=== PATIENT | male | born 2000 | race African-American/Black ===

== ENCOUNTER 2025-02-21 11:56 | Outpatient (NON) | payer OTHER, SELFPAY ==
--- OUTSIDE RECORDS SUMMARY | 2025-02-21 11:58 | XMS_ITS | Clinical Summary ---
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 Gender Identity Not on file Sexual Orientation Not on file Last Filed Vital Signs Vital Sign Reading Time Taken Comments Blood Pressure 122/79 12/10/2022 10:41 AM CDT Pulse 71 12/10/2022 10:41 AM CDT Temperature 36.8 C (98.2 F) 12/10/2022 10:41 AM CDT Respiratory Rate 20 12/10/2022 10:41 AM CDT Oxygen Saturation 96% 12/10/2022 10:41 AM CDT Inhaled Oxygen Concentration - - Weight 127 kg (280 lb) 12/10/2022 10:41 AM CDT Height 182.9 cm (6') 12/10/2022 10:41 AM CDT Body Mass Index 37.97 12/10/2022 10:41 AM CDT Plan of Treatment Health Maintenance Due Date Last Done Comments Hepatitis C Virus (HCV) Screening 2001 TdaP Immunization 2001 Human Papillomavirus (HPV) Immunization (1 - Male 3-dose series) 2016 Meningococcal B Immunization (1 of 2 - Standard) 2017 Hepatitis B Immunization (1 of 3 - 19+ 3-dose series) 2020 SARS-COV-2 Immunization (2 - season) 2024 06/18/2022 Influenza Immunization (#1) 2025 Respiratory Syncytial Virus (RSV) Immunization (Adult) (1 - 1-dose 75+ series) 2076 Meningococcal Immunization (ACWY) Aged Out No longer eligible based on patient's age to complete this topic Pneumococcal Immunization Combined Aged Out No longer eligible based on patient's age to complete this topic Rotavirus Immunization Aged Out No lo nger eligible based on patient's age to complete this topic Insurance [facility] Care Teams Gang Miner Relationship Specialty Start Date End Date Provider, None [place] PCP - General 12/12/22
--- OUTSIDE RECORDS SUMMARY | 2025-02-21 11:58 | XMS_ITS | Referral Summary ---
Author Organization [facility] Virtual Care Address [address] [place] [phone] Phone Care Team Providers Care Planning Intern Name Role Phone No, Physician Primary Care Provider [phone] Encounters Date Type Department Care Team Description 01/04/2025 3:30 PM CDT Office Visit [facility] Medical Group [facility]venient Care at [address] [address] Tenisha Ace PA Impacted cerumen of right ear (Primary Dx) from Last 3 Months Allergies Active Allergy Reactions Criticality Noted Date Comments Dextromethorphan Rash Medium 12/10/2022 Medications mupirocin (BACTROBAN) 2 % ointmentIndicat ions:Localized infection of skin Apply topically 3 (three) times a day 22 g Active Additional Information Patient not taking.Reported on 01/04/2025 triamcinolone (KENALOG) 0.1 % ointmentIndicat ions:Localized infection of skin Apply topically 2 (two) times a day for 10 days 30 g Active Additional Information Patient not taking.Reported on 01/04/2025 Active Problems No known active problems Social History Tobacco Use Types Packs/Day Years Used Date Smoking Tobacco: Never Assessed Sex and Gender Information Value Date Recorded Sex Assigned at Not on file 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 Gender Identity Not on file Sexual Orientation Not on file Last Filed Vital Signs Vital Sign Reading Time Taken Comments Blood Pressure 122/80 01/04/2025 3:38 PM CDT Pulse 82 01/04/2025 3:38 PM CDT Temperature 36.7 C (98.1 F) 01/04/2025 3:38 PM CDT Respiratory Rate 20 01/04/2025 3:38 PM CDT Oxygen Saturation 98% 01/04/2025 3:38 PM CDT Inhaled Oxygen Concentration - - Weight 128.8 kg (284 lb) 01/04/2025 3:38 PM CDT Height 182.9 cm (6' 0.01) 03/07/2024 9:58 AM CD T Body Mass Index 38.51 03/07/2024 9:58 AM CDT Plan of Treatment Not on file Procedures Procedure Name Priority Date/Time Associated Diagnosis Comments [place] REMOVAL IMPACTED CERUMEN INSTRUMENTATION UNILAT Routine 01/04/2025 3:30 PM CDT Impacted cerumen of right ear from Last 3 Months Results * [place] REMOVAL IMPACTED CERUMEN INSTRUMENTATION UNILAT (01/04/2025 3:30 PM CDT) Narrative Tenisha Ace PA - 01/04/2025 3:30 PM CDT Tenisha Ace PA 01/04/2025 3:55 PM Ear Cerumen Removal Performed by: Tenisha Ace PA Authorized by: Tenisha Ace PA Consent Given by: Patient Verbal consent obtained: Yes Written consent obtained: Yes Risks, alternatives, and patient questions discussed: Yes Location: R ear R ear cerumen impacted?: Yes R ear method of removal: Instrumentation, magnification and irrigation R ear instrumentation: Curette R ear magnification: Otoscope Inspection: TM intact Hearing quality: Improved Patient tolerance: Patient tolerated the procedure well with no immediate complications Tenisha SALVADOR IN CLINIC/BEDSIDE ORDERA BLES Final Result from Last 3 Months Insurance [facility] CMR [facility] CMR Care Teams Planning Intern Relationship Specialty Start Date End Date No, Physician PCP - General 08/05/22
--- OUTSIDE RECORDS SUMMARY | 2025-02-21 11:58 | XMS_ITS | Clinical Summary ---
Author Organization [facility] Virtual Care Address [address] [place] [address] Phone Care Team Providers Care Geographic Information Systems Director Name Role Phone No, Physician Primary Care Provider [phone] Allergies Active Allergy Reactions Criticality Noted Date Comments Dextromethorphan Rash Medium 12/10/2022 Medications mupirocin (BACTROBAN) 2 % ointmentIndicat ions:Localized infection of skin Apply topically 3 (three) times a day 22 g 4 Active Additional Information Patient not taking.Reported on 01/04/2025 triamcinolone (KENALOG) 0.1 % ointmentIndicat ions:Localized infection of skin Apply topically 2 (two) times a day for 10 days 30 g 4 Active Additional Information Patient not taking.Reported on 01/04/2025 Active Problems No known active problems Encounters Date Type Department Care Team Description 01/04/2025 3:30 PM CDT Office Visit [facility] Medical Group [facility] Care at [address] [address] Tenisha Ace PA Impacted cerumen of right ear (Primary Dx) from Last 3 Months Social History Tobacco Use Types Packs/Day Years Used Date Smoking Tobacco: Never Assessed Sex and Gender Information Value Date Recorded Sex Assigned at Not on file 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 Gender Identity Not on file Sexual Orientation Not on file Obstetrics History Last Filed Vital Signs Vital Sign Reading [...] 03/07/2024 9:58 AM CDT Plan of Treatment Health Maintenance Due Date Last Done Comments Depression Screening 2001 Hepatitis C Screening 2001 Varicella Vaccines (1 of 2 - 13+ 2-dose series) 2014 Meningococcal B Vaccine (1 o f 2 - Standard) 2017 HPV Vaccines (2 - Male 3-dos e series) 07/01/2018 06/03/2018 Hepatitis B Screening 2019 Regular Well Visit/Exam 18-64 2019 Covid-19 Vaccine (4 - 2023-2 5 season) 2024 06/18/2022, 01/14/2021, 12/24/2020 Influenza Vaccine (Season Ended) 2025 09/05/2017 DTaP/Tdap/Td Vaccine (2 - Td or Tdap) 03/02/2029 03/02/2019 Pneumococcal vaccine <65 Aged Out No longer eligible based on patient's age to complete this topic Procedures Procedure Name Priority Date/Time Associated Diagnosis Comments [place] REMOVAL IMPACTED CERUMEN INSTRUMENTATION UNILAT Routine 01/04/2025 3:30 PM CDT Impacted cerumen of right ear from Last 3 Months Results * [place] REMOVAL IMPACTED CERUMEN INSTRUMENTATION UNILAT (01/04/2025 3:30 [...] Final Result from Last 3 Months Insurance Care Teams Geographic Information Systems Director Relationship Specialty Start Date End Date No, Physician PCP - General 08/05/22
== END 2025-02-21 11:57 | disposition home or self-care (01) ==
LOC: ANHGOSHLAB 11:56
PROVIDERS: Visit Provider Otolaryngology
DX: H60.10 Cellulitis of external ear, unspecified ear (principal)
CPT/HCPCS: 87070; 87075

== ENCOUNTER 2025-03-07 11:50 | Outpatient (NON) | payer OTHER, SELFPAY ==
--- OUTSIDE RECORDS SUMMARY | 2025-03-07 12:02 | XMS_ITS | Encounter Summary ---
Author Organization [facility] Address [address] [place]rary: [place] [address] Care Team Providers Care Airfield Engineer Officer Name Role Phone Unavailable Primary Care Provider Unavailabl e Encounter Details Date Type Department Care Team (Late st Contact Info) Description 2001 Inpatient Historical [place], Chema Cespedes MD [address] 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
--- OUTSIDE RECORDS SUMMARY | 2025-03-07 12:02 | XMS_ITS | Clinical Summary ---
Author Organization [facility] Virtual Care Address [address] [place] [address] Phone Care Team Providers Care Alarm Security Or Surveillance Monitor Name Role Phone No, Physician Primary Care Provider [phone] Allergies Active Allergy Reactions Criticality Noted Date Comments Dextromethorphan Rash Medium 12/10/2022 Medications mupirocin (BACTROBAN) 2 % ointmentIndicati ons:Localized infection of skin Apply topically 3 (three) times a day 22 g 4 Active triamcinolone (KENALOG) 0.1 % ointmentIndicati ons:Localized infection of skin Apply topically 2 (two) times a day for 10 days 30 g 4 Active Additional Information Patient not taking.Reported on 03/03/2025 doxycycline hyclate 100 mg capsule Take 1 tablet/capsule (100 mg total) by mouth 2 (two) times a day 5 Active amoxicillin-clav ulanate (AUGMENTIN) 875-125 mg per tabletIndication s:Recurrent acute suppurative otitis media of right ear without spontaneous rupture of tympanic membrane Take 1 tablet by mouth 2 (two) times a day for 7 days 14 tablet 5 03/10/20 25 Active ofloxacin (FLOXIN) 0.3 % otic solutionIndicati ons:Acute otitis externa of right ear, unspecified type Administer 10 drops into the right ear daily for 7 days 5 mL 5 03/10/20 25 Active Active Problems No known active problems Encounters Date Type Department Care Team Description 03/07/2025 Results Follow-Up [facility] Medical Group Convenient Care at [address] [address] Lillian Billings NP Aerobic and anaerobic culture and gram stain Wound Ear, right 03/03/2025 9:04 AM CDT - 03/03/2025 11:59 PM CDT Hospital Encounter [address] [address] Recurrent acute suppurative otitis media of right ear without spontaneous rupture of tympanic membrane Discharge Disposition: Discharge to home or self care 03/03/2025 9:00 AM CDT Office Visit [facility] Medical Group [facility] Care at [address] [address] Neha Chamberlain NP Recurrent acute suppurative otitis media of right ear without spontaneous rupture of tympanic membrane (Primary Dx); Acute otitis externa of right ear, unspecified type 01/04/2025 3:30 PM CDT Office Visit 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 Gender Identity Not on file Sexual Orientation Not on file Obstetrics History Last Filed Vital Signs Vital Sign Reading Time Taken Comments Blood Pressure 121/80 03/03/2025 8:21 AM CDT Pulse 68 03/03/2025 8:21 AM CDT Temperature 36.3 C (97.4 F) 03/03/2025 8:21 AM CDT Respiratory Rate 16 03/03/2025 8:21 AM CDT Oxygen Saturation 96% 03/03/2025 8:21 AM CDT Inhaled Oxygen Concentration - - Weight 129.1 kg (284 lb 11.2 oz) 03/03/2025 8:21 AM CDT Height 182.9 cm (6' 0.01) 03/03/2025 8:21 AM CD T Body Mass Index 38.6 03/03/2025 8:21 AM CDT Plan of Treatment Health Maintenance [...] season) 2024 06/18/2022, 01/14/2021, 12/24/2020 Influenza Vaccine (#1) 2025 09/05/2017 DTaP/Tdap/Td Vaccine (2 - Td or Tdap) 03/02/2029 03/02/2019 Pneumococcal vaccine <65 Aged Out No longer eligible based on patient's age to complete this topic Procedures Procedure Name Priority Date/Time Associated Diagnosis Comments AEROBIC AND ANAEROBIC CULTURE AND GRAM STAIN Routine 03/03/2025 4:51 PM CDT Recurrent acute suppurative otitis media of right ear without spontaneous rupture of tympanic membrane [place] REMOVAL IMPACTED CERUMEN INSTRUMENTATION UNILAT Routine 01/04/2025 3:30 PM CDT Impacted cerumen of right ear from Last 3 Months Results * [place] REMOVAL IMPACTED CERUMEN INSTRUMENTATION UNILAT (01/04/2025 3:30 [...] Final Result from Last 3 Months Insurance CMR CMR Care Teams Alarm Security Or Surveillance Monitor Relationship Specialty Start Date End Date No, Physician PCP - General 08/05/22
--- OUTSIDE RECORDS SUMMARY | 2025-03-07 12:02 | XMS_ITS | Encounter Summary ---
Author Organization [facility] Address [address] [place] [address] Care Team Providers Care Motion Pictures Cartoonist Name Role Phone Unavailable Primary Care Provider Unavailabl e Encounter Details Date Type Department Care Team (Late st Contact Info) Description 2001 Outpatient Historical [facility] Pediatrics - Medical [place] [address] [facility] [address] [address] Chema Pelayo MD [address] [facility] [address] [place] [address] Social History Tobacco Use Types Packs/Day Years Used Date Smoking Tobacco: Never Assessed Sex and Gender Information Value Date Recorded Sex Assigned at Not on file 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
--- OUTSIDE RECORDS SUMMARY | 2025-03-07 12:02 | XMS_ITS | Encounter Summary ---
Author Organization [facility] Healthcare Address [address] [place] [id number] Care Team Providers Care Cyber Security Specialist Name Role Phone No, Physician Primary Care Provider [phone] Encounter Details Date Type Department Care Team (Late st Contact Info) Description 03/07/2025 Results Follow-Up [facility] Medical Group Convenient Care at [address] [address] Lillian Billings NP [address] [place] [address] [address] [place] [address] Aerobic and anaerobic culture and gram stain Wound Ear, right Social History Tobacco Use Types Packs/Day Years Used Date Smoking Tobacco: Never Assessed Sex and Gender Information Value Date Recorded Sex Assigned at Not on file 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
--- OUTSIDE RECORDS SUMMARY | 2025-03-07 12:02 | XMS_ITS | Referral Summary ---
Author Organization [facility] Virtual Care Address [address] [place] [address] Phone Care Team Providers Care Pasteurizing Supervisor Name Role Phone No, Physician Primary Care Provider [phone] Encounters Date Type Department Care Team Description 03/07/2025 Results Follow-Up [facility] Medical [facility] Convenient Care at [address] [address] Lillian Billings NP Aerobic and anaerobic culture and gram stain Wound Ear, right 03/03/2025 9:04 AM CDT - 03/03/2025 11:59 PM CDT Hospital Encounter [address] [id number] Recurrent acute suppurative otitis media of right ear without spontaneous rupture of tympanic membrane Discharge Disposition: Discharge to home or self care 03/03/2025 9:00 AM CDT Office Visit [facility] Convenient Care at [address] [address] Neha Chamberlain NP Recurrent acute suppurative otitis media of right ear without spontaneous rupture of tympanic membrane (Primary Dx); Acute otitis externa of right ear, unspecified type 01/04/2025 3:30 PM CDT Office Visit [facility] Convenient Care at [address] [address] Tenisha Ace PA Impacted cerumen [...] Active Active Problems No known active problems Social History Tobacco Use Types Packs/Day Years Used Date Smoking Tobacco: Never Assessed Sex and Gender Information Value Date Recorded Sex Assigned at Not on file 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 Gender Identity Not on file Sexual Orientation [...] 03/03/2025 8:21 AM CDT Plan of Treatment Not on file Procedures Procedure Name Priority Date/Time Associated Diagnosis Comments AEROBIC AND ANAEROBIC CULTURE AND GRAM STAIN Routine 03/03/2025 4:51 PM CDT Recurrent acute suppurative otitis media of right ear without spontaneous rupture of tympanic membrane [place] REMOVAL IMPACTED CERUMEN INSTRUMENTATION UNILAT Routine 01/04/2025 3:30 PM CDT Impacted cerumen of right ear from Last 3 Months Results * [place] REMOVAL IMPACTED CERUMEN INSTRUMENTATION UNILAT (01/04/2025 3:30 [...] Final Result from Last 3 Months Insurance [facility] CMR Care Teams Pasteurizing Supervisor Relationship Specialty Start Date End Date No, Physician PCP - General 08/05/22
--- OUTSIDE RECORDS SUMMARY | 2025-03-07 12:02 | XMS_ITS | Clinical Summary ---
Author Organization [facility] Address [address] [place] [address] Care Team Providers Care Customer Sales Consultant Name Role Phone Unavailable Primary Care Provider Unavailabl e Allergies Active Allergy Reactions Criticality Noted Date Comments Dextromethorphan Rash Low 12/10/2022 Medications chlorpheniramine -HYDROcodone (TUSSIONEX) 8-10 mg/5 mL Suspension, Sust. Release 12HRIndications: Viral URI with cough Take 5 mL by mouth every 12 hours as needed for Cough. 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 Gender Identity Not on file Sexual Orientation Not on file Last Filed Vital Signs Vital Sign Reading Time Taken Comments Blood Pressure 117/80 01/03/2023 10:45 AM CDT Pulse 98 01/03/2023 10:45 AM CDT Temperature 37.5 C (99.5 F) 01/03/2023 10:45 AM CDT Respiratory Rate 18 01/03/2023 10:45 AM CDT Oxygen Saturation 98% 01/03/2023 10:45 AM CDT Inhaled Oxygen Concentration - - Weight 127 kg (280 lb) 01/03/2023 10:45 AM CDT Height 182.9 cm (6') 01/03/2023 10:45 AM CDT Body Mass Index 37.97 01/03/2023 10:45 AM CDT Plan of Treatment Health Maintenance Due Date Last Done Comments HPV VACCINES (1 - Male 3-dose series) 2016 DTAP/TDAP/TD VACCINES (1 - Tdap) 2020 HEPATITIS B VACCINES (1 of 3 - 19+ 3-dose series) 07/04 INFLUENZA VACCINE (#1) 2025 Insurance [facility] [id number] POS II
--- OUTSIDE RECORDS SUMMARY | 2025-03-07 12:02 | XMS_ITS | Clinical Summary ---
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
--- OUTSIDE RECORDS SUMMARY | 2025-03-07 12:02 | XMS_ITS | Encounter Summary ---
Author Organization [facility] Address 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
== END 2025-03-07 11:51 | disposition home or self-care (01) ==
LOC: ANHGOSHLAB 11:51
PROVIDERS: Visit Provider Otolaryngology
DX: H60.10 Cellulitis of external ear, unspecified ear (principal)
CPT/HCPCS: 87070; 87075